=== PATIENT | female | born 1975 | race Caucasian/White ===

== ENCOUNTER 2016-11-26 07:30 | Inpatient (IN) | payer BC ==
[~2016-11-26 07:30] MED LIST: Meropenem 500 MG SDV ONE
[2016-11-26] MEDS ORDERED: Scopolamine 1.5 MG Transdermal Patch TOP SCH (08:30)
[2016-11-26] MEDS ORDERED: Gabapentin 300 MG Cap PO ONE (08:30)
[2016-11-26] MEDS ORDERED: Celecoxib 200 MG Cap PO ONE (08:30)
[2016-11-26] MEDS ORDERED: Dextrose 5%-Lactated Ringers 1,000 ML IV SCH (08:30)
[2016-11-26] MEDS ORDERED: Acetaminophen 500 MG Tab PO ONE (08:30)
[2016-11-26] MEDS ORDERED: Rocuronium 50 MG/5 ML Vial ONE (09:54)
[2016-11-26] MEDS ORDERED: Glycopyrrolate 0.2 MG/ML 5 ML MDV ONE (09:54)
[2016-11-26] MEDS ORDERED: Neostigmine Methylsulfate 1 MG/ML 5 ML Syringe ONE (09:54)
[2016-11-26] MEDS ORDERED: Propofol 200 MG/20 ML SDV ONE (09:54)
[2016-11-26] MEDS ORDERED: Succinylcholine 200 MG/10 ML MDV ONE (09:54)
[2016-11-26] MEDS ORDERED: Ondansetron 4 MG/2 ML SDV ONE (09:54)
[2016-11-26] MEDS ORDERED: Dexamethasone 4 MG/ML SDV ONE (09:54)
[2016-11-26] MEDS ORDERED: Ropivacaine 59 ML, Dexamethasone 8 MG, EPINEPHrine 0.4 MG, Sodium Chloride 0.9% 18.6 ML NERVRT ONE ×4 (10:00)
[2016-11-26] MEDS ORDERED: Lidocaine 0.4%/D5W 2 GM/500 ML BAG IV SCH (10:00)
[2016-11-26] MEDS ORDERED: Ketamine 500 MG/5 ML MDV IV ONE (10:00)
[2016-11-26] MEDS ORDERED: Lidocaine 2% 100 MG/5 ML Syringe IVPUSH ONE (10:00)
[2016-11-26] MEDS: cefOXitin 2 GM in Sodium Chloride 0.9% 50 ML IV ONE ×2 (10:08→13:41)
[2016-11-26] MEDS ORDERED: Labetalol 20 MG/4 ML Syringe IVPUSH PRN (14:00)
[2016-11-26] MEDS ORDERED: hydrOXYzine HCl 100 MG/2 ML SDV IM PRN (14:00)
[2016-11-26] MEDS ORDERED: diphenhydrAMINE 50 MG/ML SDV IVPUSH PRN (14:00)
[2016-11-26] MEDS: Lidocaine 0.4%/D5W 2 GM/500 ML BAG IV SCH (14:14)
[2016-11-26] MEDS: Gabapentin 250 MG/5 ML Solution ML 470 ML Bottle PO SCH ×2 (14:50→19:58)
[2016-11-26] MEDS: Ondansetron 4 MG/2 ML SDV IVPUSH PRN ×2 (15:53→19:58)
[2016-11-26] MEDS: cefOXitin 2 GM in Sodium Chloride 0.9% 50 ML IV SCH ×2 (15:56→22:21)
[2016-11-26] MEDS ORDERED: MVI, Adult with Vitamin K 10 ML, Thiamine 200 MG, Chromium/Copper/Mang/Selen/Zn 1 ML in... IV SCH ×4 (16:00)
[2016-11-26] MEDS: Acetaminophen Soln 650 MG/20.3 ML UD Cup PO SCH ×2 (16:14→22:21)
[2016-11-26] MEDS: Pantoprazole 40 MG Vial IVPUSH SCH (16:14)
[2016-11-26] MEDS: Heparin Sodium 5,000 Units/ML Vial SUBCUT SCH (18:04)
[2016-11-26] MEDS: Metoclopramide 10 MG/2 ML SDV IVPUSH PRN (18:23)
[2016-11-27] MEDS: Dextrose 5%-Lactated Ringers 1,000 ML IV SCH ×2 (00:12→06:30)
[2016-11-27] MEDS: Lidocaine 0.4%/D5W 2 GM/500 ML BAG IV SCH (02:49)
[2016-11-27] MEDS ORDERED: Iohexol 647 MG/ML 50 ML SDV PO STA (03:32)
[2016-11-27] MEDS: Metoclopramide 10 MG/2 ML SDV IVPUSH PRN (03:49)
[2016-11-27] MEDS: cefOXitin 2 GM in Sodium Chloride 0.9% 50 ML IV SCH (03:49)
[2016-11-27] MEDS: Acetaminophen Soln 650 MG/20.3 ML UD Cup PO SCH ×4 (03:50→21:45)
[2016-11-27] MEDS: Heparin Sodium 5,000 Units/ML Vial SUBCUT SCH ×2 (07:25→18:16)
[2016-11-27] MEDS: Celecoxib 200 MG Cap PO SCH (07:41)
[2016-11-27] MEDS ORDERED: Dextrose 5%-Lactated Ringers 1,000 ML IV SCH (08:15)
[2016-11-27] MEDS: Gabapentin 250 MG/5 ML Solution ML 470 ML Bottle PO SCH ×3 (08:38→21:44)
[2016-11-27] MEDS: SCOPOLAMINE PATCH CHECK TOP SCH (08:39)
[2016-11-27] MEDS: FLUoxetine 20 MG Cap PO SCH (08:41)
[2016-11-27] MEDS: Glycopyrrolate 1 MG Tab PO SCH ×2 (08:42→21:47)
--- NOTE | 2016-11-27 09:41 | CR ---
Limited upper GI The patient is status post Carolyn-en-Y gastric bypass. There are left upper quadrant drains in place. T here is no extravasation of contrast. The gastric pouch empties readily into a nondilated Carolyn limb. No complications are evident. Impression: 1. Status post Carolyn-en-Y gastric bypass without evidence for complication.
[2016-11-27] MEDS: MVI, Adult with Vitamin K 10 ML, Thiamine 200 MG, Chromium/Copper/Mang/Selen/Zn 1 ML in... IV SCH ×8 (14:54→15:46)
[2016-11-27] MEDS: Pantoprazole 40 MG Vial IVPUSH SCH (15:46)
[2016-11-28] MEDS: Acetaminophen Soln 650 MG/20.3 ML UD Cup PO SCH ×2 (05:12→09:21)
[2016-11-28] MEDS: Heparin Sodium 5,000 Units/ML Vial SUBCUT SCH (06:57)
[2016-11-28] MEDS: Celecoxib 200 MG Cap PO SCH (08:17)
[2016-11-28] MEDS ORDERED: Cyanocobalamin (Vitamin B12) 1,000 MCG/ML SDV IM ONE (09:00)
[2016-11-28] MEDS: SCOPOLAMINE PATCH CHECK TOP SCH (09:11)
[2016-11-28] MEDS: Glycopyrrolate 1 MG Tab PO SCH (09:12)
[2016-11-28] MEDS: Gabapentin 250 MG/5 ML Solution ML 470 ML Bottle PO SCH (09:20)
[2016-11-28] MEDS: FLUoxetine 20 MG Cap PO SCH (09:21)
--- NOTE | 2016-11-28 12:42 | PN ---
DATE OF SERVICE: 11/27/2016 The patient has been afebrile with stable vital signs, status post Carolyn-en-Y gastric bypass and diaphragmatic hernia repair yesterday. Her upper GI looks good and urine output has been satisfactory along with oral intake. She did have a little bit of nausea early on that seems to be resolving. We will restart her standard medications today and have her get in the shower if desired and go with a step-2 diet. The present pain control appears to be satisfactory. Syd Nair MD /[id number]
--- NOTE | 2016-11-28 15:15 | OR ---
DATE OF PROCEDURE: 11/26/2016 PREOPERATIVE DIAGNOSIS: Morbid obesity. POSTOPERATIVE DIAGNOSES: 1. Morbid obesity. 2. Marked hepatomegaly. 3. Paraesophageal diaphragmatic hernia. 4. Mediastinal lipoma. OPERATIVE PROCEDURES: 1. Laparoscopic Carolyn-en-Y gastric bypass with long limb gastroenterostomy (29036). 2. David-Cut needle liver biopsy (72205). 3. Repair of paraesophageal diaphragmatic hernia (59929). 4. Excision of mediastinal lipoma (44209). ANESTHESIA: General. NETWORK SECURITY ADMINISTRATOR: Marlyn Medina PA-C. INDICATIONS FOR PROCEDURE: This is a 41-year-old female presenting with longstanding morbid obesity with increasingly significant comorbidities. After preoperative evaluation and discussion, she wished to proceed with a gastric bypass procedure. Potential risks including bleeding, infection, leaks from various GI tract closures, problems with bowel obstruction overtime, as well as the possibility of cardiopulmonary, septic, or hemorrhagic complications leading to were discussed, and the patient wishes to proceed. DETAILS OF PROCEDURE: The patient was taken to the operating room. After general endotracheal anesthesia was induced, she was converted to a lithotomy position. Using continuous ultrasound, bilateral subcostal transversus abdominis plane blocks were placed using the standard solution. Following this, the abdomen was prepped and draped and an orogastric tube placed per Anesthesia. At 15 cm inferior and 5 cm left of xiphoid process, a transverse incision was made, and the peritoneal cavity entered under direct vision with an Optiview trocar, inflated to 15 mmHg pressure with CO2. Laparoscope was then reinserted. No underlying trocar insertion site injuries were seen. Following this, 5 additional trocars were placed across the upper and mid abdomen, and general exploration was undertaken. The patient was noted to have marked hepatomegaly with liver volume being roughly 2 to 3 times normal and liver grossly fatty infiltrated. David-Cut needle biopsy was obtained from left lobe of the liver. Minimal bleeding from the biopsy site was controlled with electrocautery. The omentum was then divided in the midline up to the level of the transverse colon. This allowed identification of the small bowel at the ligament of Treitz. Small bowel was then traced out 100 cm distal to that point and was divided transversely with a DENNIS stapler. Small bowel was then traced out an additional 150 cm, where the [id number] enteroenterostomy was accomplished with internal firing of the Endo-DENNIS 60 mm stapler. Common opening was then closed transversely with the same stapler, the angles anastomosed, and the mesenteric defect approximated with some 0 Ethibond stitch, along with fibrin sealant. The divided end of the Carolyn limb was then from the mesentery for a few centimeters, which allowed an antecolic position of the Carolyn limb up to the level of the gastroesophageal junction without tension. The liver was then retracted anteriorly. The patient was noted to have a moderate-sized paraesophageal diaphragmatic hernia. This contained some perigastric fat, gastric fundus, and a small tongue of omentum prolapsing in a plane anterior to the course of the esophagus. This was reduced and the peritoneum overlying incised and reflected downward. During the course of the dissection, the mediastinal lipoma was encountered, and to facilitate satisfactory closure of the hiatal defect, the lipoma was excised. An anterior repair of the diaphragmatic hernia was then accomplished with some 0 Ethibond sutures, reinforced with PTFE pledgets. The gastrointestinal balloon catheter was then inflated to 15 mL and pulled up snugly against the EG junction. Gastric wall over the apex balloon was then marked with electrocautery and balloon catheter deflated and pulled up in the esophagus. The lesser omental tissue adjacent to the gastric cardia was then incised, allowing dissection behind the stomach at the level of the cauterized lee ann at the gastric cardia. At that level, the pouch was initiated with a transverse firing of the DENNIS stapler and then completed with 2 additional firings of the DENNIS stapler up to and through the angle of His. Upon completion of the pouch, both staple lines were noted to be intact. The anvil of a 25-mm EEA stapler was attached to [place]inta sump-type tube. The latter was brought down through the mouth and taken out through a small opening in the gastric pouch, allowing the anvil likewise to be pulled down within the gastric pouch. The divided end of the Carolyn limb was then opened, and main body of the EEA stapler was then brought through the left lateral trocar site and into the divided end of the Carolyn limb. This was brought up to the anvil and united with it, thus creating the gastrojejunostomy. Upon removal of the stapler, double donuts of mucosa were noted within it. The small bowel was closed off with a vascular staple line. Gastrojejunostomy was reinforced with some 0 Ethibond seromuscular stitch, along with some fibrin sealant. The leak test was accomplished with injection of 120 mL of air in the gastric pouch while submerged with cefoxitin-containing saline solution. No leaks were identified. One Steve-Valladares drain was then placed adjacent to the gastric cardia and up into the area of splenic fossa. The trocars were then sequentially removed and peritoneal cavity deflated. Incisions were closed with some 4-0 Vicryl skin stitch and drain affixed with 4-0 Vicryl stitch as well. The patient was taken to the recovery room in a satisfactory condition. There were no other complications. Physician publisher assistant, Marlyn Medina, played an essential role in assisting in this case, helping to position the patient, retract structures, as well as suturing and cutting sutures when indicated. Her presence improved the patient's safety and decreased the operative time. Syd Nair MD /[id number]
--- NOTE | 2016-11-29 08:29 | DISCH ---
ADMISSION DIAGNOSES: 1. Postsurgical hypothyroidism for papillary thyroid carcinoma status post thyroidectomy. 2. Dyslipidemia. 3. Benign essential hypertension. 4. Seasonal allergies. 5. Morbid obesity. 6. Recurrent major depression disorder in complete remission. 7. Endometriosis. DISCHARGE DIAGNOSES: Laparoscopic Carolyn-en-Y gastric bypass surgery with long limb gastroenterostomy, David-Cut needle liver biopsy, repair of periesophageal diaphragmatic hernia and excision of mediastinal lipoma for morbid obesity, marked hepatomegaly, periesophageal diaphragmatic hernia, and mediastinal lipoma. DATE OF SURGERY: 11/26/2016. SURGEON: Syd Nair MD. HISTORY: Maura is a 41-year-old female with longstanding history of morbid obesity and increasingly significant comorbidities. After preoperative evaluation and discussion of the possible risks and possible complications, she wished to proceed with surgical procedure. HOSPITAL COURSE: Maura had her surgery on 11/26/2016. She had no operative complications. On postop day #1, she was started on a step-2 without cereal. Gastric bypass diet after her upper GI was completed and was normal. Vital signs remained stable. Her activity was good. Oral intake adequate. She received adequate postop Bariatric education from staff and dietitian and was ready to be discharged on postop day #2. PHYSICAL EXAMINATION: GENERAL: Maura Andres is a 41-year-old female. VITAL SIGNS: Height is 5 feet 4 inches. Weight 261.8 pounds. BMI is 44.9. TPR is 98.8, 63, 16. Blood pressure 141/93. HEENT: Negative. NECK: Supple. HEART: Regular rate and rhythm. LUNGS: Clear. ABDOMEN: Dressings dry and intact. HELENA drain has been removed, 4x4s over HELENA drain site. Incisions look good. Abdominal binder is on. EXTREMITIES: Without peripheral edema. DISPOSITION: Discharged to home. CONDITION: Stable and improving. HOME MEDICATIONS: 1. Tylenol 650 mg liquid p.o. q.6 hours for 2 weeks. 2. Celebrex 200 mg p.o. daily #14. 3. Prozac 20 mg p.o. daily. 4. Glycopyrrolate 4 mg b.i.d. 5. Levothyroxine 137 mcg p.o. daily. 6. Bystolic 10 mg p.o. daily. 7. Zofran ODT 4 mg q.4 hours p.r.n. nausea, #30. FOLLOWUP APPOINTMENT: With Marlyn Medina PA-C on 12/06/2016 at 10:00 a.m. DIET: Step-2 gastric bypass diet without cereal for 2 weeks. Drink 8 to 10 glasses of water a day. ACTIVITY: No lifting greater than 10 pounds for [address] not drive for 1 week. Shower/bathing, may shower. Keep operative site clean and dry. Wear abdominal binder for 2 weeks and then as tolerated. Notify provider if any fever, nausea, or vomiting. SPECIAL INSTRUCTION: Use incentive spirometer 10 times every hour while awake for 2 weeks.
== END 2016-11-28 12:54 | disposition home or self-care (01) | DRG 403 ==
LOC: EDSTATUS 07:30 → JP.SDSSCHI 07:51 → JP.SDS 07:51 → JP.2SS 12:05
PROVIDERS: ADMIT Surgery; ATTEND Surgery
PROC: 0D164ZA Bypass Stomach to Jejunum, Percutaneous Endoscopic Approach (ICD-10-PCS; principal; 2016-11-26)
PROC: 0BQT4ZZ Repair Diaphragm, Percutaneous Endoscopic Approach (ICD-10-PCS; 2016-11-26)
PROC: 0WBC4ZX Excision of Mediastinum, Percutaneous Endoscopic Approach, Diagnostic (ICD-10-PCS; 2016-11-26)
PROC: 3E0T3BZ Introduction of Anesthetic Agent into Peripheral Nerves and Plexi, Percutaneous Approach (ICD-10-PCS; 2016-11-26)
PROC: 0FB24ZX Excision of Left Lobe Liver, Percutaneous Endoscopic Approach, Diagnostic (ICD-10-PCS; 2016-11-26)
DX: E66.01 Morbid (severe) obesity due to excess calories (principal); Z68.41 Body mass index [BMI] 40.0-44.9, adult; R16.0 Hepatomegaly, not elsewhere classified; K44.9 Diaphragmatic hernia without obstruction or gangrene; D17.4 Benign lipomatous neoplasm of intrathoracic organs; K76.0 Fatty (change of) liver, not elsewhere classified; I10 Essential (primary) hypertension; F32.9 Major depressive disorder, single episode, unspecified; Z88.0 Allergy status to penicillin; E89.0 Postprocedural hypothyroidism; Z85.850 Personal history of malignant neoplasm of thyroid; Z91.09 Other allergy status, other than to drugs and biological substances; E78.5 Hyperlipidemia, unspecified; N80.9 Endometriosis, unspecified
CPT/HCPCS: 36415; 74240; 74240-26; 82962; 86850; 86900; 86901; 88304; 88307; 88313; A9270-GY; C9113; J0171; J0330; J0694; J1100; J1644; J2001; J2185; J2405; J2704; J2710; J2765; J2795; J3010; J3411; J3420; J7030; J7042; J7050; Q9967